=== PATIENT | male | born 1930 | race Caucasian/White ===

== ENCOUNTER 2019-03-03 16:34 | Inpatient (IN) | payer MEDICARE ==
[~2019-03-03] VITALS: Ht 188 cm; Wt 79.4 kg
[2019-03-03] MEDS ORDERED: hydrALAZINE HCL 50 MG TABLET PO ONE (16:40)
[2019-03-03] MEDS ORDERED: MAG355OR18 PO (17:14)
[2019-03-03] MEDS ORDERED: INSU100V11 SQ (17:14)
[2019-03-03] MEDS ORDERED: CYAN-51 SUBCUT/PO (17:14)
[2019-03-03] MEDS ORDERED: AMLO5TAB9 PO (17:14)
[2019-03-03] MEDS ORDERED: POLY17PO4 PO (17:14)
[2019-03-03] MEDS ORDERED: LABE200T5 PO (17:14)
[2019-03-03] MEDS ORDERED: QUET50TA PO (17:14)
[2019-03-03] MEDS ORDERED: HYDR100T27 PO (17:14)
[2019-03-03] MEDS ORDERED: ACET650T10 PO (17:14)
[2019-03-03] MEDS ORDERED: LISI-603 PO (17:14)
[2019-03-03] MEDS ORDERED: MAGN400O6 PO (17:14)
[2019-03-03 17:17] LABS: BASOPHILS % (AUTO) 0.6 % (0.0-2.0); EOSINOPHILS % (AUTO) 4.3 % (0.0-6.0); HEMATOCRIT 32 % (39-51); HEMOGLOBIN 10.5 g/dL (13.5-17.5); LYMPHOCYTES # (AUTO) 1.5 /CMM (0.8-4.8); LYMPHOCYTES % (AUTO) 30.5 % (20.0-44.0); MEAN CORPUSCULAR HGB CONC 33 g/dl (31.0-36.0); MEAN CORPUSCULAR VOLUME 94 fL (80-96); MONOCYTES # (AUTO) 0.6 /CMM (0.1-1.30); MONOCYTES % (AUTO) 11.7 % (2.0-12.0); NEUTROPHILS # (AUTO) 2.7 /CMM (1.8-8.9); NEUTROPHILS % (AUTO) 52.9 % (43.0-81.0); PLATELET COUNT (AUTO) 176 /CMM (150-450); RED BLOOD CELL COUNT(AUTO) 3.34 MIL/uL (4.5-6.0)
[2019-03-03 17:26] LABS: CALCIUM, SERUM 8.7 mg/dL (8.5-10.1); CARBON DIOXIDE 29 mmol/L (21-32); CHLORIDE 106 mmol/L (98-107); GLUCOSE 113 mg/dL (74-106); POTASSIUM 3.9 mmol/L (3.5-5.1); SODIUM SERUM 142 mmol/L (136-145); UREA NITROGEN, BLOOD 23 mg/dL (7-18)
[2019-03-03] MEDS ORDERED: LABETALOL HCL (100MG) 100 MG TABLET PO ONE (17:30)
[2019-03-03] MEDS ORDERED: hydrALAZINE HCL 10 MG TABLET PO ONE (17:30)
[2019-03-03 17:32] LABS: ALANINE AMINOTRANSFERASE 16 U/L (12-78); ALBUMIN 3.2 g/dL (3.4-5.0); ALCOHOL, BLOOD < 3 mg/dL (0-0); ALKALINE PHOSPHATASE 69 U/L (46-116); ASPARTATE AMINOTRANSFERASE 16 U/L (15-37); BILIRUBIN,DIRECT 0.1 mg/dL (0.0-0.2); BILIRUBIN,TOTAL 0.8 mg/dL (0.2-1.0); TOTAL PROTEIN, SERUM 6.5 g/dL (6.4-8.2)
[2019-03-03] MEDS ORDERED: LABETALOL HCL (100MG) 100 MG TABLET ONE (17:52)
[2019-03-03 18:01] LABS: THYROID STIMULATING HORMONE 1.463 uIU/mL (0.358-3.74)
[2019-03-03 18:15] LABS: APPEARANCE,URINE Clear (CLEAR); BILIRUBIN,URINE Negative (NEGATIVE); BLOOD, URINE Negative Ery/uL (NEGATIVE); COLOR,URINE Yellow (YELLOW); KETONES,URINE Negative (NEGATIVE); LEUKOCYTE ESTERASE ,URINE Negative (NEGATIVE); NITRITE, URINE Negative (NEGATIVE); PH,URINE 5.5 (5.0-8.0); PROTEIN,URINE Negative (NEGATIVE); UGLUCOSE Negative (NEGATIVE); UROBILINOGEN,URINE 0.2 EU/dL (0.2)
[2019-03-03 20:15] VITALS: BP 150/74
[2019-03-03] MEDS ORDERED: MAG HYDROX/AL HYDROX/SIMETH 30 ML UDC PO PRN ×2 (20:30→21:30)
[2019-03-03] MEDS ORDERED: ACETAMINOPHEN 325 MG TABLET PO PRN (20:30)
[2019-03-03] MEDS ORDERED: MAGNESIUM HYDROXIDE 30 ML UDC PO PRN ×2 (20:30→21:30)
[2019-03-03] MEDS: BLOOD SUGAR DIAGNOSTIC 1 EACH STRIP VI SCH (21:27)
[2019-03-03] MEDS ORDERED: DEXTROSE 50%-WATER 50 ML DISP.SYRIN IV PRN (21:30)
[2019-03-03] MEDS ORDERED: Medication Not On Formulary EA (Acetaminophen 650 MG) PO PRN (21:30)
[2019-03-03] MEDS: *INSULIN REGULAR(HUMULIN R)HUM 100 UNIT/ML VIAL SQ PRN (22:31)
[2019-03-04] MEDS ORDERED: LABETALOL HCL 200 MG TABLET PO SCH (05:00)
[2019-03-04] MEDS: hydrALAZINE HCL 50 MG TABLET PO SCH ×3 (05:00→19:50)
[2019-03-04] MEDS: BLOOD SUGAR DIAGNOSTIC 1 EACH STRIP VI SCH ×4 (07:30→21:15)
[2019-03-04 08:00] VITALS: BP 158/86
[2019-03-04 08:36] LABS: BASOPHILS % (AUTO) 0.8 % (0.0-2.0); EOSINOPHILS % (AUTO) 3.6 % (0.0-6.0); HEMATOCRIT 33 % (39-51); HEMOGLOBIN 10.9 g/dL (13.5-17.5); LYMPHOCYTES # (AUTO) 1.4 /CMM (0.8-4.8); LYMPHOCYTES % (AUTO) 30.3 % (20.0-44.0); MEAN CORPUSCULAR HGB CONC 33 g/dl (31.0-36.0); MEAN CORPUSCULAR VOLUME 93 fL (80-96); MONOCYTES # (AUTO) 0.4 /CMM (0.1-1.30); MONOCYTES % (AUTO) 9.5 % (2.0-12.0); NEUTROPHILS # (AUTO) 2.5 /CMM (1.8-8.9); NEUTROPHILS % (AUTO) 55.8 % (43.0-81.0); PLATELET COUNT (AUTO) 185 /CMM (150-450); WHITE BLOOD COUNT (AUTO) 4.5 K/uL (4.3-11.0)
[2019-03-04] MEDS: CYANOCOBALAMIN 500 MCG TABLET PO SCH (08:43)
[2019-03-04] MEDS: AMLODIPINE BESYLATE 5 MG TABLET PO SCH ×2 (08:43→16:30)
[2019-03-04] MEDS: LISINOPRIL (20MG) 20 MG TABLET PO SCH ×2 (08:43→20:55)
[2019-03-04] MEDS: POLYETHYLENE GLYCOL 3350 17 GM POWD.PACK PO SCH ×2 (08:43→16:28)
[2019-03-04 09:19] LABS: ALANINE AMINOTRANSFERASE 15 U/L (12-78); ALBUMIN 3.2 g/dL (3.4-5.0); ALKALINE PHOSPHATASE 69 U/L (46-116); ASPARTATE AMINOTRANSFERASE 13 U/L (15-37); BILIRUBIN,TOTAL 0.9 mg/dL (0.2-1.0); CALCIUM, SERUM 8.9 mg/dL (8.5-10.1); CARBON DIOXIDE 27 mmol/L (21-32); CHLORIDE 106 mmol/L (98-107); GLUCOSE 133 mg/dL (74-106); MAGNESIUM 1.8 mg/dL (1.8-2.4); PHOSPHORUS 3.7 mg/dL (2.5-4.9); POTASSIUM 3.9 mmol/L (3.5-5.1); SODIUM SERUM 143 mmol/L (136-145); TOTAL PROTEIN, SERUM 6.6 g/dL (6.4-8.2); UREA NITROGEN, BLOOD 23 mg/dL (7-18)
[2019-03-04 09:21] LABS: CHOLESTEROL 166 mg/dL (<200); HDL CHOLESTEROL 59 mg/dL (40-60); LDL 94 mg/dL (0-99); TRIGLYCERIDES 62 mg/dL (30-150)
[2019-03-04 16:00] VITALS: BP 131/90
[2019-03-04] MEDS: INSULIN REGULAR, HUMAN 100 UNIT/ML 3 ML VIAL SQ PRN (16:28)
[2019-03-04 20:00] VITALS: BP 175/75
[2019-03-04] MEDS: LABETALOL HCL (100MG) 100 MG TABLET PO SCH (20:54)
[2019-03-04] MEDS: DIVALPROEX SODIUM 125 MG TABLET.DR PO SCH (20:54)
[2019-03-04] MEDS: ZOLPIDEM TARTRATE 5 MG TABLET PO PRN (21:01)
[2019-03-04] MEDS: QUETIAPINE FUMARATE 25 MG TABLET PO SCH (21:15)
[2019-03-05] MEDS: hydrALAZINE HCL 50 MG TABLET PO SCH ×3 (07:06→21:08)
[2019-03-05] MEDS: LABETALOL HCL (100MG) 100 MG TABLET PO SCH ×3 (07:07→21:10)
[2019-03-05] MEDS: BLOOD SUGAR DIAGNOSTIC 1 EACH STRIP VI SCH ×4 (07:30→21:35)
[2019-03-05 08:00] VITALS: BP 113/71
[2019-03-05] MEDS: QUETIAPINE FUMARATE 25 MG TABLET PO PRN (08:37)
[2019-03-05] MEDS: POLYETHYLENE GLYCOL 3350 17 GM POWD.PACK PO SCH ×2 (08:37→17:00)
[2019-03-05 08:40] VITALS: BP 86/42
[2019-03-05] MEDS: LISINOPRIL (20MG) 20 MG TABLET PO SCH ×2 (09:00→21:10)
[2019-03-05] MEDS: CYANOCOBALAMIN 500 MCG TABLET PO SCH (09:00)
[2019-03-05] MEDS: AMLODIPINE BESYLATE 5 MG TABLET PO SCH ×2 (09:00→17:46)
[2019-03-05] MEDS: DIVALPROEX SODIUM 125 MG TABLET.DR PO SCH ×2 (09:00→21:08)
[2019-03-05 12:00] VITALS: BP 128/54
[2019-03-05] MEDS ORDERED: ZIPRASIDONE MESYLATE 20 MG/VIAL VIAL IM ONE (13:30)
[2019-03-05 16:00] VITALS: BP 166/80
[2019-03-05 19:37] VITALS: BP 162/70
[2019-03-05] MEDS: QUETIAPINE FUMARATE 25 MG TABLET PO SCH (21:11)
[2019-03-05] MEDS: *INSULIN REGULAR(HUMULIN R)HUM 100 UNIT/ML VIAL SQ PRN (21:37)
[2019-03-05] MEDS: ZOLPIDEM TARTRATE 5 MG TABLET PO PRN (21:41)
[2019-03-06] MEDS: hydrALAZINE HCL 50 MG TABLET PO SCH ×4 (05:00→20:36)
[2019-03-06] MEDS: LABETALOL HCL (100MG) 100 MG TABLET PO SCH ×3 (05:00→20:35)
[2019-03-06] MEDS: BLOOD SUGAR DIAGNOSTIC 1 EACH STRIP VI SCH ×4 (07:30→20:51)
[2019-03-06 08:00] VITALS: BP 142/60
[2019-03-06] MEDS: LISINOPRIL (20MG) 20 MG TABLET PO SCH ×2 (09:00→20:34)
[2019-03-06] MEDS: AMLODIPINE BESYLATE 5 MG TABLET PO SCH ×2 (09:00→17:00)
[2019-03-06] MEDS: POLYETHYLENE GLYCOL 3350 17 GM POWD.PACK PO SCH ×2 (09:00→17:00)
[2019-03-06] MEDS: CYANOCOBALAMIN 500 MCG TABLET PO SCH (09:00)
[2019-03-06] MEDS: DIVALPROEX SODIUM 125 MG TABLET.DR PO SCH ×3 (09:00→20:35)
[2019-03-06] MEDS ORDERED: OLANZAPINE 10 MG VIAL IM STA (09:25)
[2019-03-06] MEDS: QUETIAPINE FUMARATE 25 MG TABLET PO SCH ×2 (15:05→21:09)
[2019-03-06 16:00] VITALS: BP 141/67
[2019-03-06 20:00] VITALS: BP 139/68
[2019-03-06] MEDS: ZOLPIDEM TARTRATE 5 MG TABLET PO PRN (20:48)
[2019-03-06] MEDS: *INSULIN REGULAR(HUMULIN R)HUM 100 UNIT/ML VIAL SQ PRN (20:50)
[2019-03-06] MEDS: QUETIAPINE FUMARATE 25 MG TABLET PO PRN (22:17)
[2019-03-07] MEDS: LABETALOL HCL (100MG) 100 MG TABLET PO SCH ×3 (05:28→21:36)
[2019-03-07] MEDS: hydrALAZINE HCL 50 MG TABLET PO SCH ×3 (05:28→21:25)
[2019-03-07 08:00] VITALS: BP 140/80
[2019-03-07] MEDS: BLOOD SUGAR DIAGNOSTIC 1 EACH STRIP VI SCH ×4 (08:05→21:26)
[2019-03-07] MEDS: LISINOPRIL (20MG) 20 MG TABLET PO SCH ×2 (09:00→21:26)
[2019-03-07] MEDS: DIVALPROEX SODIUM 125 MG TABLET.DR PO SCH ×3 (09:00→21:26)
[2019-03-07] MEDS: POLYETHYLENE GLYCOL 3350 17 GM POWD.PACK PO SCH ×2 (09:00→17:00)
[2019-03-07] MEDS: AMLODIPINE BESYLATE 5 MG TABLET PO SCH ×2 (09:00→17:00)
[2019-03-07] MEDS: CYANOCOBALAMIN 500 MCG TABLET PO SCH ×2 (09:00→14:57)
[2019-03-07] MEDS: QUETIAPINE FUMARATE 25 MG TABLET PO SCH ×3 (09:00→21:26)
[2019-03-07 16:00] VITALS: BP 167/71
[2019-03-07 19:44] VITALS: BP 145/62
[2019-03-08] MEDS: LABETALOL HCL (100MG) 100 MG TABLET PO SCH ×3 (05:00→21:41)
[2019-03-08] MEDS: hydrALAZINE HCL 50 MG TABLET PO SCH ×3 (05:00→21:40)
[2019-03-08] MEDS: BLOOD SUGAR DIAGNOSTIC 1 EACH STRIP VI SCH ×4 (07:30→22:10)
[2019-03-08] MEDS: DIVALPROEX SODIUM 125 MG TABLET.DR PO SCH ×3 (08:54→21:41)
[2019-03-08] MEDS: POLYETHYLENE GLYCOL 3350 17 GM POWD.PACK PO SCH ×2 (08:54→17:00)
[2019-03-08] MEDS: AMLODIPINE BESYLATE 5 MG TABLET PO SCH ×2 (08:55→17:00)
[2019-03-08] MEDS: LISINOPRIL (20MG) 20 MG TABLET PO SCH ×2 (09:00→21:40)
[2019-03-08] MEDS: CYANOCOBALAMIN 500 MCG TABLET PO SCH (09:00)
[2019-03-08] MEDS: QUETIAPINE FUMARATE 25 MG TABLET PO SCH ×2 (09:00→13:00)
[2019-03-08 12:30] VITALS: BP 148/96
[2019-03-08 16:00] VITALS: BP 115/83
[2019-03-08 20:30] VITALS: BP 145/67
[2019-03-08] MEDS ORDERED: QUETIAPINE FUMARATE 25 MG TABLET PO SCH (22:00)
[2019-03-08] MEDS: *INSULIN REGULAR(HUMULIN R)HUM 100 UNIT/ML VIAL SQ PRN (22:12)
[2019-03-09] MEDS: hydrALAZINE HCL 50 MG TABLET PO SCH ×3 (05:50→22:34)
[2019-03-09] MEDS: LABETALOL HCL (100MG) 100 MG TABLET PO SCH ×3 (05:51→22:33)
[2019-03-09 08:00] VITALS: BP 143/58
[2019-03-09] MEDS: BLOOD SUGAR DIAGNOSTIC 1 EACH STRIP VI SCH ×4 (08:18→21:28)
[2019-03-09] MEDS: POLYETHYLENE GLYCOL 3350 17 GM POWD.PACK PO SCH ×3 (09:00→17:00)
[2019-03-09] MEDS: INSULIN REGULAR, HUMAN 100 UNIT/ML 3 ML VIAL SQ PRN (09:56)
[2019-03-09] MEDS: LISINOPRIL (20MG) 20 MG TABLET PO SCH ×2 (09:57→21:30)
[2019-03-09] MEDS: CYANOCOBALAMIN 500 MCG TABLET PO SCH (09:58)
[2019-03-09] MEDS: DIVALPROEX SODIUM 125 MG TABLET.DR PO SCH ×3 (10:00→21:25)
[2019-03-09] MEDS: QUETIAPINE FUMARATE 25 MG TABLET PO SCH ×3 (10:01→21:28)
[2019-03-09] MEDS: AMLODIPINE BESYLATE 5 MG TABLET PO SCH ×2 (10:01→17:41)
[2019-03-09 16:00] VITALS: BP 137/85
[2019-03-09 20:00] VITALS: BP 141/59
[2019-03-09] MEDS: *INSULIN REGULAR(HUMULIN R)HUM 100 UNIT/ML VIAL SQ PRN (21:36)
[2019-03-10] MEDS: LABETALOL HCL (100MG) 100 MG TABLET PO SCH ×3 (05:00→21:17)
[2019-03-10] MEDS: hydrALAZINE HCL 50 MG TABLET PO SCH ×3 (05:00→21:16)
[2019-03-10] MEDS: BLOOD SUGAR DIAGNOSTIC 1 EACH STRIP VI SCH ×4 (07:30→21:21)
[2019-03-10] MEDS: AMLODIPINE BESYLATE 5 MG TABLET PO SCH ×2 (09:00→17:00)
[2019-03-10] MEDS: LISINOPRIL (20MG) 20 MG TABLET PO SCH ×2 (09:00→21:16)
[2019-03-10] MEDS: POLYETHYLENE GLYCOL 3350 17 GM POWD.PACK PO SCH ×2 (09:00→17:00)
[2019-03-10] MEDS: DIVALPROEX SODIUM 125 MG TABLET.DR PO SCH ×3 (09:15→21:16)
[2019-03-10] MEDS: CYANOCOBALAMIN 500 MCG TABLET PO SCH (09:15)
[2019-03-10] MEDS: QUETIAPINE FUMARATE 25 MG TABLET PO SCH ×3 (09:15→21:15)
[2019-03-10 20:00] VITALS: BP_SYST 140; BP_SYST 157; BP_DIAS 72; BP_DIAS 78
[2019-03-11] MEDS: hydrALAZINE HCL 50 MG TABLET PO SCH ×3 (05:00→20:51)
[2019-03-11] MEDS: LABETALOL HCL (100MG) 100 MG TABLET PO SCH ×3 (05:00→21:46)
[2019-03-11] MEDS: BLOOD SUGAR DIAGNOSTIC 1 EACH STRIP VI SCH ×4 (07:30→22:48)
[2019-03-11 08:00] VITALS: BP 153/72
[2019-03-11] MEDS: CYANOCOBALAMIN 500 MCG TABLET PO SCH (09:09)
[2019-03-11] MEDS: AMLODIPINE BESYLATE 5 MG TABLET PO SCH ×2 (09:09→17:52)
[2019-03-11] MEDS: DIVALPROEX SODIUM 125 MG TABLET.DR PO SCH ×3 (09:10→20:52)
[2019-03-11] MEDS: QUETIAPINE FUMARATE 25 MG TABLET PO SCH ×3 (09:10→21:48)
[2019-03-11] MEDS: POLYETHYLENE GLYCOL 3350 17 GM POWD.PACK PO SCH ×2 (09:10→17:53)
[2019-03-11] MEDS: LISINOPRIL (20MG) 20 MG TABLET PO SCH ×2 (09:12→20:52)
[2019-03-11 16:00] VITALS: BP 118/53
[2019-03-11] MEDS ORDERED: LABETALOL HCL (100MG) 100 MG TABLET ONE (21:15)
[2019-03-12] MEDS: hydrALAZINE HCL 50 MG TABLET PO SCH ×3 (05:00→21:19)
[2019-03-12] MEDS: LABETALOL HCL (100MG) 100 MG TABLET PO SCH ×3 (05:00→21:17)
[2019-03-12 08:00] VITALS: BP 138/70
[2019-03-12] MEDS: BLOOD SUGAR DIAGNOSTIC 1 EACH STRIP VI SCH ×4 (08:57→21:28)
[2019-03-12] MEDS: INSULIN REGULAR, HUMAN 100 UNIT/ML 3 ML VIAL SQ PRN (09:05)
[2019-03-12] MEDS: QUETIAPINE FUMARATE 25 MG TABLET PO SCH ×3 (09:10→21:17)
[2019-03-12] MEDS: CYANOCOBALAMIN 500 MCG TABLET PO SCH (09:10)
[2019-03-12] MEDS: AMLODIPINE BESYLATE 5 MG TABLET PO SCH ×2 (09:11→17:51)
[2019-03-12] MEDS: POLYETHYLENE GLYCOL 3350 17 GM POWD.PACK PO SCH ×2 (09:12→17:51)
[2019-03-12] MEDS: LISINOPRIL (20MG) 20 MG TABLET PO SCH ×2 (09:12→21:18)
[2019-03-12] MEDS: DIVALPROEX SODIUM 125 MG TABLET.DR PO SCH ×3 (09:16→21:16)
[2019-03-12 16:00] VITALS: BP 130/75
[2019-03-12 19:38] VITALS: BP 138/50
[2019-03-12] MEDS: *INSULIN REGULAR(HUMULIN R)HUM 100 UNIT/ML VIAL SQ PRN (21:30)
[2019-03-13] MEDS: LABETALOL HCL (100MG) 100 MG TABLET PO SCH ×3 (05:16→21:11)
[2019-03-13] MEDS: hydrALAZINE HCL 50 MG TABLET PO SCH ×3 (05:16→21:12)
[2019-03-13] MEDS: BLOOD SUGAR DIAGNOSTIC 1 EACH STRIP VI SCH ×4 (07:54→22:00)
[2019-03-13 08:00] VITALS: BP 139/57
[2019-03-13 08:10] LABS: VALPROIC ACID 68 ug/mL (50-100)
[2019-03-13 08:20] LABS: ALANINE AMINOTRANSFERASE 15 U/L (12-78); ASPARTATE AMINOTRANSFERASE 12 U/L (15-37)
[2019-03-13] MEDS: AMLODIPINE BESYLATE 5 MG TABLET PO SCH ×2 (09:00→16:29)
[2019-03-13] MEDS: POLYETHYLENE GLYCOL 3350 17 GM POWD.PACK PO SCH ×2 (09:00→16:30)
[2019-03-13] MEDS: QUETIAPINE FUMARATE 25 MG TABLET PO SCH ×3 (09:00→21:10)
[2019-03-13] MEDS: LISINOPRIL (20MG) 20 MG TABLET PO SCH ×2 (09:00→21:04)
[2019-03-13] MEDS: DIVALPROEX SODIUM 125 MG TABLET.DR PO SCH ×3 (09:00→21:11)
[2019-03-13] MEDS: CYANOCOBALAMIN 500 MCG TABLET PO SCH (09:00)
[2019-03-13] MEDS ORDERED: ZIPRASIDONE MESYLATE 20 MG/VIAL VIAL IM STA (13:03)
[2019-03-13] MEDS: INSULIN REGULAR, HUMAN 100 UNIT/ML 3 ML VIAL SQ PRN ×2 (15:03→17:48)
[2019-03-13 16:00] VITALS: BP 130/75
[2019-03-13] MEDS: ZOLPIDEM TARTRATE 5 MG TABLET PO PRN (21:04)
[2019-03-13 21:06] VITALS: BP 146/52
[2019-03-14] MEDS: LABETALOL HCL (100MG) 100 MG TABLET PO SCH ×3 (05:43→20:44)
[2019-03-14] MEDS: hydrALAZINE HCL 50 MG TABLET PO SCH ×3 (05:44→21:40)
[2019-03-14 08:00] VITALS: BP 100/54
[2019-03-14] MEDS: LISINOPRIL (20MG) 20 MG TABLET PO SCH ×2 (09:00→20:43)
[2019-03-14] MEDS: QUETIAPINE FUMARATE 25 MG TABLET PO SCH ×3 (09:00→20:43)
[2019-03-14] MEDS: POLYETHYLENE GLYCOL 3350 17 GM POWD.PACK PO SCH ×3 (09:00→17:18)
[2019-03-14] MEDS: DIVALPROEX SODIUM 125 MG TABLET.DR PO SCH ×3 (09:00→20:43)
[2019-03-14] MEDS: CYANOCOBALAMIN 500 MCG TABLET PO SCH (09:00)
[2019-03-14] MEDS: AMLODIPINE BESYLATE 5 MG TABLET PO SCH ×2 (09:00→17:00)
[2019-03-14] MEDS: BLOOD SUGAR DIAGNOSTIC 1 EACH STRIP VI SCH ×4 (09:27→20:50)
[2019-03-14] MEDS ORDERED: ZIPRASIDONE MESYLATE 20 MG/VIAL VIAL IM ONE ×2 (10:00)
[2019-03-14] MEDS: INSULIN REGULAR, HUMAN 100 UNIT/ML 3 ML VIAL SQ PRN ×3 (12:01→17:51)
[2019-03-14 16:00] VITALS: BP 135/52
[2019-03-14 20:21] VITALS: BP 142/57
[2019-03-14] MEDS: *INSULIN REGULAR(HUMULIN R)HUM 100 UNIT/ML VIAL SQ PRN (21:34)
[2019-03-14] MEDS: MIRTAZAPINE 15 MG TABLET PO SCH (21:40)
[2019-03-14] MEDS: ZOLPIDEM TARTRATE 5 MG TABLET PO PRN (21:40)
[2019-03-15] MEDS: hydrALAZINE HCL 50 MG TABLET PO SCH ×3 (05:18→21:07)
[2019-03-15] MEDS: LABETALOL HCL (100MG) 100 MG TABLET PO SCH ×3 (06:00→21:07)
[2019-03-15] MEDS: BLOOD SUGAR DIAGNOSTIC 1 EACH STRIP VI SCH ×4 (07:51→22:10)
[2019-03-15 08:00] VITALS: BP 165/76
[2019-03-15] MEDS ORDERED: ZIPRASIDONE MESYLATE 20 MG/VIAL VIAL IM ONE (08:30)
[2019-03-15] MEDS: QUETIAPINE FUMARATE 25 MG TABLET PO SCH ×3 (09:00→21:09)
[2019-03-15] MEDS: DIVALPROEX SODIUM 125 MG TABLET.DR PO SCH ×3 (09:00→21:08)
[2019-03-15] MEDS: LISINOPRIL (20MG) 20 MG TABLET PO SCH ×2 (09:00→21:08)
[2019-03-15] MEDS: AMLODIPINE BESYLATE 5 MG TABLET PO SCH ×2 (09:00→17:00)
[2019-03-15] MEDS: POLYETHYLENE GLYCOL 3350 17 GM POWD.PACK PO SCH ×2 (09:00→17:00)
[2019-03-15] MEDS: CYANOCOBALAMIN 500 MCG TABLET PO SCH (09:00)
[2019-03-15 16:00] VITALS: BP 141/85
[2019-03-15 21:01] VITALS: BP 132/80
[2019-03-15] MEDS: MIRTAZAPINE 15 MG TABLET PO SCH (21:09)
[2019-03-15] MEDS: INSULIN REGULAR, HUMAN 100 UNIT/ML 3 ML VIAL SQ PRN (22:12)
[2019-03-16] MEDS: hydrALAZINE HCL 50 MG TABLET PO SCH ×3 (04:58→21:14)
[2019-03-16] MEDS: LABETALOL HCL (100MG) 100 MG TABLET PO SCH ×3 (05:00→21:14)
[2019-03-16] MEDS: BLOOD SUGAR DIAGNOSTIC 1 EACH STRIP VI SCH ×4 (07:49→21:59)
[2019-03-16 08:00] VITALS: BP 130/57
[2019-03-16] MEDS: DIVALPROEX SODIUM 125 MG TABLET.DR PO SCH ×2 (08:14→12:09)
[2019-03-16] MEDS: QUETIAPINE FUMARATE 25 MG TABLET PO SCH ×3 (08:14→21:16)
[2019-03-16] MEDS: CYANOCOBALAMIN 500 MCG TABLET PO SCH (08:14)
[2019-03-16] MEDS: POLYETHYLENE GLYCOL 3350 17 GM POWD.PACK PO SCH ×3 (08:15→17:24)
[2019-03-16] MEDS: AMLODIPINE BESYLATE 5 MG TABLET PO SCH ×2 (08:15→17:24)
[2019-03-16] MEDS: LISINOPRIL (20MG) 20 MG TABLET PO SCH ×2 (08:15→21:15)
[2019-03-16] MEDS ORDERED: OLANZAPINE 10 MG VIAL IM PRN ×2 (10:00)
[2019-03-16 16:00] VITALS: BP 146/65
[2019-03-16] MEDS: INSULIN REGULAR, HUMAN 100 UNIT/ML 3 ML VIAL SQ PRN ×2 (17:34→22:00)
[2019-03-16 20:00] VITALS: BP 138/67
[2019-03-16] MEDS: DIVALPROEX SODIUM 500 MG TABLET.DR PO SCH (21:11)
[2019-03-16] MEDS: MIRTAZAPINE 15 MG TABLET PO SCH (21:15)
[2019-03-17] MEDS: ZOLPIDEM TARTRATE 5 MG TABLET PO PRN (00:56)
[2019-03-17] MEDS: LABETALOL HCL (100MG) 100 MG TABLET PO SCH ×3 (05:00→21:57)
[2019-03-17] MEDS: hydrALAZINE HCL 50 MG TABLET PO SCH ×3 (05:00→21:55)
[2019-03-17 08:00] VITALS: BP 116/63
[2019-03-17] MEDS: BLOOD SUGAR DIAGNOSTIC 1 EACH STRIP VI SCH ×4 (08:15→22:17)
[2019-03-17] MEDS: CYANOCOBALAMIN 500 MCG TABLET PO SCH (08:16)
[2019-03-17] MEDS: LISINOPRIL (20MG) 20 MG TABLET PO SCH ×2 (08:16→21:56)
[2019-03-17] MEDS: QUETIAPINE FUMARATE 25 MG TABLET PO SCH ×3 (08:16→21:57)
[2019-03-17] MEDS: DIVALPROEX SODIUM 500 MG TABLET.DR PO SCH ×3 (08:16→21:55)
[2019-03-17] MEDS: POLYETHYLENE GLYCOL 3350 17 GM POWD.PACK PO SCH ×2 (08:16→16:31)
[2019-03-17] MEDS: AMLODIPINE BESYLATE 5 MG TABLET PO SCH ×2 (08:17→16:32)
[2019-03-17 16:00] VITALS: BP 159/71
[2019-03-17 20:00] VITALS: BP 158/74
[2019-03-17] MEDS: MIRTAZAPINE 15 MG TABLET PO SCH (21:57)
[2019-03-18] MEDS: hydrALAZINE HCL 50 MG TABLET PO SCH ×3 (06:33→20:42)
[2019-03-18] MEDS: BLOOD SUGAR DIAGNOSTIC 1 EACH STRIP VI SCH ×4 (07:30→22:22)
[2019-03-18 08:00] VITALS: BP 104/59
[2019-03-18] MEDS: AMLODIPINE BESYLATE 5 MG TABLET PO SCH ×2 (08:51→16:54)
[2019-03-18] MEDS: LISINOPRIL (20MG) 20 MG TABLET PO SCH ×2 (08:51→20:43)
[2019-03-18] MEDS: CYANOCOBALAMIN 500 MCG TABLET PO SCH (08:51)
[2019-03-18] MEDS: DIVALPROEX SODIUM 500 MG TABLET.DR PO SCH ×3 (08:51→20:42)
[2019-03-18] MEDS: POLYETHYLENE GLYCOL 3350 17 GM POWD.PACK PO SCH ×2 (08:51→16:54)
[2019-03-18] MEDS: QUETIAPINE FUMARATE 25 MG TABLET PO SCH ×3 (08:51→22:09)
[2019-03-18] MEDS: LABETALOL HCL (100MG) 100 MG TABLET PO SCH ×2 (13:00→20:43)
[2019-03-18 16:00] VITALS: BP 139/55
[2019-03-18 20:00] VITALS: BP 155/66
[2019-03-18] MEDS: MIRTAZAPINE 15 MG TABLET PO SCH (22:09)
[2019-03-19] MEDS: hydrALAZINE HCL 50 MG TABLET PO SCH ×3 (05:46→15:30)
[2019-03-19] MEDS: LABETALOL HCL (100MG) 100 MG TABLET PO SCH ×3 (05:46→22:02)
[2019-03-19] MEDS: BLOOD SUGAR DIAGNOSTIC 1 EACH STRIP VI SCH ×4 (07:40→22:10)
[2019-03-19 08:00] VITALS: BP 121/59
[2019-03-19] MEDS: POLYETHYLENE GLYCOL 3350 17 GM POWD.PACK PO SCH ×2 (09:00→10:00)
[2019-03-19] MEDS: DIVALPROEX SODIUM 500 MG TABLET.DR PO SCH ×3 (09:00→21:59)
[2019-03-19] MEDS: QUETIAPINE FUMARATE 25 MG TABLET PO SCH ×4 (09:00→22:00)
[2019-03-19] MEDS: CYANOCOBALAMIN 500 MCG TABLET PO SCH (09:00)
[2019-03-19] MEDS: LISINOPRIL (20MG) 20 MG TABLET PO SCH ×2 (09:00→15:43)
[2019-03-19] MEDS: AMLODIPINE BESYLATE 5 MG TABLET PO SCH ×2 (09:00→10:00)
[2019-03-19] MEDS ORDERED: LORAZEPAM 0.5 MG TABLET PO ONE (15:30)
[2019-03-19 16:00] VITALS: BP 130/85
[2019-03-19] MEDS: INSULIN REGULAR, HUMAN 100 UNIT/ML 3 ML VIAL SQ PRN (18:14)
[2019-03-19 20:00] VITALS: BP 130/78
[2019-03-19] MEDS: MIRTAZAPINE 15 MG TABLET PO SCH (21:59)
[2019-03-19] MEDS: *INSULIN REGULAR(HUMULIN R)HUM 100 UNIT/ML VIAL SQ PRN (22:23)
[2019-03-20] MEDS: LABETALOL HCL (100MG) 100 MG TABLET PO SCH ×3 (05:23→22:04)
[2019-03-20] MEDS: hydrALAZINE HCL 50 MG TABLET PO SCH ×3 (05:23→21:42)
[2019-03-20] MEDS: BLOOD SUGAR DIAGNOSTIC 1 EACH STRIP VI SCH ×4 (07:30→21:58)
[2019-03-20 08:00] VITALS: BP 119/49
[2019-03-20] MEDS: DIVALPROEX SODIUM 500 MG TABLET.DR PO SCH ×3 (08:56→21:42)
[2019-03-20] MEDS: POLYETHYLENE GLYCOL 3350 17 GM POWD.PACK PO SCH ×2 (08:59→16:42)
[2019-03-20] MEDS: AMLODIPINE BESYLATE 5 MG TABLET PO SCH ×2 (09:00→16:44)
[2019-03-20] MEDS: LISINOPRIL (20MG) 20 MG TABLET PO SCH ×2 (09:00→21:42)
[2019-03-20] MEDS: CYANOCOBALAMIN 500 MCG TABLET PO SCH (09:05)
[2019-03-20] MEDS: QUETIAPINE FUMARATE 25 MG TABLET PO SCH ×2 (12:31→21:44)
[2019-03-20 16:06] VITALS: BP 137/80
[2019-03-20 19:56] VITALS: BP 145/53
[2019-03-20] MEDS: MIRTAZAPINE 15 MG TABLET PO SCH (21:43)
[2019-03-20] MEDS: *INSULIN REGULAR(HUMULIN R)HUM 100 UNIT/ML VIAL SQ PRN (22:00)
[2019-03-21] MEDS: LABETALOL HCL (100MG) 100 MG TABLET PO SCH ×3 (05:40→21:48)
[2019-03-21] MEDS: hydrALAZINE HCL 50 MG TABLET PO SCH ×3 (05:41→21:48)
[2019-03-21] MEDS: BLOOD SUGAR DIAGNOSTIC 1 EACH STRIP VI SCH ×4 (07:43→22:05)
[2019-03-21 08:00] VITALS: BP 100/59
[2019-03-21] MEDS: POLYETHYLENE GLYCOL 3350 17 GM POWD.PACK PO SCH ×2 (08:36→17:11)
[2019-03-21] MEDS: DIVALPROEX SODIUM 500 MG TABLET.DR PO SCH ×3 (08:39→21:47)
[2019-03-21] MEDS: QUETIAPINE FUMARATE 25 MG TABLET PO SCH ×3 (08:39→21:46)
[2019-03-21] MEDS: CYANOCOBALAMIN 500 MCG TABLET PO SCH (08:41)
[2019-03-21] MEDS: LISINOPRIL (20MG) 20 MG TABLET PO SCH ×2 (08:42→21:46)
[2019-03-21] MEDS: AMLODIPINE BESYLATE 5 MG TABLET PO SCH ×2 (08:42→17:00)
[2019-03-21] MEDS: INSULIN REGULAR, HUMAN 100 UNIT/ML 3 ML VIAL SQ PRN ×3 (09:37→17:16)
[2019-03-21 16:00] VITALS: BP_SYST 123; BP_DIAS 51; BP_DIAS 69
[2019-03-21 19:33] VITALS: BP 164/71
[2019-03-21] MEDS: MIRTAZAPINE 15 MG TABLET PO SCH (21:47)
[2019-03-21] MEDS: ZOLPIDEM TARTRATE 5 MG TABLET PO PRN (23:26)
[2019-03-22] MEDS: hydrALAZINE HCL 50 MG TABLET PO SCH ×3 (05:17→22:01)
[2019-03-22] MEDS: LABETALOL HCL (100MG) 100 MG TABLET PO SCH ×3 (05:17→22:02)
[2019-03-22] MEDS: BLOOD SUGAR DIAGNOSTIC 1 EACH STRIP VI SCH ×4 (06:46→22:24)
[2019-03-22 07:52] LABS: ALANINE AMINOTRANSFERASE 18 U/L (12-78); ASPARTATE AMINOTRANSFERASE 16 U/L (15-37)
[2019-03-22 08:00] VITALS: BP 137/67
[2019-03-22 08:21] LABS: VALPROIC ACID 75 ug/mL (50-100)
[2019-03-22] MEDS: AMLODIPINE BESYLATE 5 MG TABLET PO SCH ×2 (09:08→17:14)
[2019-03-22] MEDS: POLYETHYLENE GLYCOL 3350 17 GM POWD.PACK PO SCH ×2 (09:09→17:14)
[2019-03-22] MEDS: QUETIAPINE FUMARATE 25 MG TABLET PO SCH ×3 (09:09→22:00)
[2019-03-22] MEDS: DIVALPROEX SODIUM 500 MG TABLET.DR PO SCH ×3 (09:09→22:02)
[2019-03-22] MEDS: LISINOPRIL (20MG) 20 MG TABLET PO SCH ×2 (09:10→22:02)
[2019-03-22] MEDS: CYANOCOBALAMIN 500 MCG TABLET PO SCH (09:15)
[2019-03-22 16:00] VITALS: BP 138/67
[2019-03-22 20:24] VITALS: BP 142/62
[2019-03-22] MEDS: MIRTAZAPINE 15 MG TABLET PO SCH (22:02)
[2019-03-23] MEDS ORDERED: LABETALOL HCL (100MG) 100 MG TABLET ONE (04:50)
[2019-03-23] MEDS: LABETALOL HCL (100MG) 100 MG TABLET PO SCH ×3 (04:52→12:13)
[2019-03-23] MEDS: hydrALAZINE HCL 50 MG TABLET PO SCH ×3 (04:53→12:12)
[2019-03-23] MEDS: BLOOD SUGAR DIAGNOSTIC 1 EACH STRIP VI SCH ×3 (07:39→17:36)
[2019-03-23] MEDS: INSULIN REGULAR, HUMAN 100 UNIT/ML 3 ML VIAL SQ PRN ×3 (07:40→17:41)
[2019-03-23 08:00] VITALS: BP 159/69
[2019-03-23] MEDS: POLYETHYLENE GLYCOL 3350 17 GM POWD.PACK PO SCH ×2 (08:45→16:22)
[2019-03-23] MEDS: LISINOPRIL (20MG) 20 MG TABLET PO SCH (08:46)
[2019-03-23] MEDS: CYANOCOBALAMIN 500 MCG TABLET PO SCH (08:46)
[2019-03-23] MEDS: DIVALPROEX SODIUM 500 MG TABLET.DR PO SCH ×2 (08:46→12:12)
[2019-03-23] MEDS: AMLODIPINE BESYLATE 5 MG TABLET PO SCH ×2 (08:46→16:23)
[2019-03-23] MEDS: QUETIAPINE FUMARATE 25 MG TABLET PO SCH ×2 (08:54→12:12)
[2019-03-23 16:00] VITALS: BP 101/65
[2019-03-23 16:23] VITALS: BP 111/62
== END 2019-03-23 16:45 | DRG 885 ==
LOC: ER 16:39 → GPS 19:49
PROVIDERS: ADMIT Psychiatry & Neurology Psychiatry; ATTEND Student in an Organized Health Care Education/Training Program
DX: F29 Unspecified psychosis not due to a substance or known physiological condition (principal); N18.9 Chronic kidney disease, unspecified; N17.0 Acute kidney failure with tubular necrosis; E11.65 Type 2 diabetes mellitus with hyperglycemia; F03.91 Unspecified dementia, unspecified severity, with behavioral disturbance; E44.1 Mild protein-calorie malnutrition; E86.0 Dehydration; F03.90 Unspecified dementia, unspecified severity, without behavioral disturbance, psychotic disturbance, mood disturbance, and anxiety; D63.8 Anemia in other chronic diseases classified elsewhere; I12.9 Hypertensive chronic kidney disease with stage 1 through stage 4 chronic kidney disease, or unspecified chronic kidney disease; E88.09 Other disorders of plasma-protein metabolism, not elsewhere classified; M19.90 Unspecified osteoarthritis, unspecified site; F39 Unspecified mood [affective] disorder; Z68.22 Body mass index [BMI] 22.0-22.9, adult; Z73.6 Limitation of activities due to disability; S00.03XA Contusion of scalp, initial encounter; W18.30XA Fall on same level, unspecified, initial encounter; Y93.9 Activity, unspecified; Y92.129 Unspecified place in nursing home as the place of occurrence of the external cause; E11.22 Type 2 diabetes mellitus with diabetic chronic kidney disease; Z79.4 Long term (current) use of insulin
CPT/HCPCS: 36415; 70450-TC; 73560-TC; 80048-TC; 80053-TC; 80061-TC; 80076-TC; 80164-TC; 80305; 81000-TC; 82962-TC; 83735-TC; 84100-TC; 84443-TC; 84450-TC; 84460-TC; 84484-TC; 85025-TC; 87081-TC; 97116-TC; 97530-TC; G0480; J1815; J3486; J3490